=== PATIENT | male | born 1970 | race Hispanic/Latino ===

== ENCOUNTER 2018-06-05 17:13 | Emergency (ER) | payer BC, OTHER ==
[~2018-06-05] VITALS: Ht 172.7 cm; Wt 113.4 kg
[~2018-06-05 17:13] MED LIST: ADULT LOW DOSE81 MG PO; CLINDAMYCIN HC300 MG PO; CLONIDINE HCL0.3 MG PO; DIOVAN320 MG PO; ETODOLAC400 MG PO; GABAPENTIN100 MG PO; METFORMIN HCL500 MG PO; METOPROLOL TART25 MG PO; ULTRAM50 MG PO
[2018-06-05] MEDS ORDERED: ONDANSETRON HCL INJ 2MG/ML 2ML 2 MG/ML VIAL IV STA (17:25)
[2018-06-05] MEDS ORDERED: SODIUM CHLORIDE 0.9% 100 ML 100 ML IV ONE (17:30)
== END 2018-06-05 18:49 | disposition home or self-care (01) ==
LOC: FSED 17:13
DX: R19.7 Diarrhea, unspecified (principal); R11.0 Nausea; K52.9 Noninfective gastroenteritis and colitis, unspecified
CPT/HCPCS: 80053; 85025; 99284; J2405

== ENCOUNTER 2022-07-09 08:49 | Emergency (ER) | payer BC, OTHER ==
[~2022-07-09] VITALS: Ht 170.2 cm; Wt 160.4 kg
[2022-07-09] MEDS ORDERED: CLONIDINE HCL 0.1 MG TAB ONE (09:44)
[2022-07-09] MEDS ORDERED: CLONIDINE HCL 0.1 MG TAB PO ONE (09:45)
[2022-07-09] MEDS ORDERED: CORICIDIN COLD1 EACH PO (09:47)
== END 2022-07-09 09:59 | disposition home or self-care (01) ==
LOC: FSED 09:03
DX: R05.9 Cough, unspecified (principal); J06.9 Acute upper respiratory infection, unspecified; I10 Essential (primary) hypertension; E11.9 Type 2 diabetes mellitus without complications; I50.9 Heart failure, unspecified; I25.10 Atherosclerotic heart disease of native coronary artery without angina pectoris; E78.5 Hyperlipidemia, unspecified; K21.9 Gastro-esophageal reflux disease without esophagitis; E66.01 Morbid (severe) obesity due to excess calories; Z98.84 Bariatric surgery status
CPT/HCPCS: 83518; 87400; 99283

== ENCOUNTER 2024-01-06 09:56 | Emergency (ER) | payer MEDICARE, OTHER ==
[~2024-01-06] VITALS: Ht 172.7 cm; Wt 130.4 kg
[~2024-01-06 09:56] MED LIST changes: +CORICIDIN COLD1 EACH PO
[2024-01-06] MEDS ORDERED: LISINOPRIL10 MG PO (10:12)
[2024-01-06] MEDS: GLUCAGON FOR INJ 1 MG VIAL IV ONE (11:47)
[2024-01-06 13:08] VITALS: PULSE 62; RESP 16; TEMP 98.4; O2SAT 100
== END 2024-01-06 14:25 | disposition short-term general hospital (02) ==
LOC: FSED 10:05
DX: T18.128A Food in esophagus causing other injury, initial encounter (principal); E11.9 Type 2 diabetes mellitus without complications; I11.0 Hypertensive heart disease with heart failure; I50.9 Heart failure, unspecified; E78.5 Hyperlipidemia, unspecified; Z98.84 Bariatric surgery status
CPT/HCPCS: 71046; 80048; 80076; 82553; 83880; 84484; 85025; 85610; 93005; 96374; 99284; J1610

== ENCOUNTER 2024-08-21 08:40 | Emergency (ER) | payer MEDICARE ==
[~2024-08-21] VITALS: Ht 170.2 cm; Wt 144.2 kg
[~2024-08-21 08:40] MED LIST changes: +LISINOPRIL10 MG PO
[2024-08-21] MEDS: SODIUM CHLORIDE 0.9% 1000ML 1,000 ML IV SCH (09:20)
[2024-08-21] MEDS: KETOROLAC TROMETHAMINE 30 MG/ML VIAL IV STA (09:24)
[2024-08-21] MEDS: ACETAMINOPHEN 325 MG TAB PO ONE (09:24)
[2024-08-21] MEDS: CYCLOBENZAPRINE HCL 10 MG TAB PO ONE (09:25)
[2024-08-21 10:40] VITALS: TEMP 98.7
[2024-08-21 11:58] VITALS: PULSE 71; RESP 18
[2024-08-21] MEDS ORDERED: KETOROLAC TROME10 MG PO (12:02)
[2024-08-21] MEDS ORDERED: METHOCARBAMOL750 MG PO (12:02)
[2024-08-21 12:07] VITALS: BP 123/70; RESP 20; O2SAT 96
[2024-08-21] MEDS ORDERED: IOPAMIDOL 370 MG/ML 100 ML INFUS..BTL INJ ONE (12:23)
== END 2024-08-21 12:08 | disposition home or self-care (01) ==
LOC: FSED 08:52
DX: M54.6 Pain in thoracic spine (principal); S29.012A Strain of muscle and tendon of back wall of thorax, initial encounter; M79.18 Myalgia, other site; R16.2 Hepatomegaly with splenomegaly, not elsewhere classified; K57.90 Diverticulosis of intestine, part unspecified, without perforation or abscess without bleeding; I10 Essential (primary) hypertension; E11.65 Type 2 diabetes mellitus with hyperglycemia; E78.5 Hyperlipidemia, unspecified; I50.9 Heart failure, unspecified; I25.10 Atherosclerotic heart disease of native coronary artery without angina pectoris; K21.9 Gastro-esophageal reflux disease without esophagitis; E66.01 Morbid (severe) obesity due to excess calories
CPT/HCPCS: 71046; 71275; 74174; 93005; 99283; J1885; J7030; Q9967